=== PATIENT | male | born 1975 | race African-American/Black ===

== ENCOUNTER 2018-01-18 21:25 | Emergency (ER) | payer SELFPAY ==
--- NOTE | 2018-01-18 21:48 | EDM.PDOC ---
ED HPI GENERAL MEDICAL PROBLEM - General Chief Complaint: Cardiovascular Problem Stated Complaint: BLOOD PRESURE Time Seen by Provider: 01/18/18 21:43 - History of Present Illness INITIAL COMMENTS - FREE TEXT/NARRATIVE: HISTORY AND PHYSICAL: History of present illness: Patient's 42-year-old black male who presents from the nursing home for medical screening exam he has no complaints his reported blood pressure 170/130 nursing home he denies history of hypertension or any other concern on arrival here his blood pressure 150/100 and he remains without complaints Review of systems: As per history of present illness and below otherwise all systems reviewed and negative. Past medical history: As per history of present illness and as reviewed below otherwise noncontributory. Surgical history: As per history of present illness and as reviewed below otherwise noncontributory. Social history: No reported history of drug or alcohol abuse. Family history: As per history of present illness and as reviewed below otherwise noncontributory. Physical exam: HEENT: Atraumatic, normocephalic, pupils reactive, negative for conjunctival pallor or scleral icterus, mucous membranes moist, throat clear, neck supple, nontender, trachea midline. Lungs: Clear to auscultation, breath sounds equal bilaterally, chest nontender. Heart: S1S2, regular, negative for clicks, rubs, or JVD. Abdomen: Soft, nondistended, nontender. Negative for masses or hepatosplenomegaly. Negative for costovertebral tenderness. Pelvis: Stable nontender. Genitourinary: Deferred. Rectal: Deferred. Extremities: Atraumatic, negative for cords or calf pain. Neurovascular unremarkable. Neuro: Awake, alert, oriented. Cranial nerves II through XII unremarkable. Cerebellum unremarkable. Motor and sensory unremarkable throughout. Exam nonfocal. Diagnostics: None Therapeutics: None Impression: #1 medical screening exam #2 medically clear for incarceration Definitive disposition and diagnosis as appropriate pending reevaluation and review of above. - Related Data Allergies Allergy/AdvReac Type Severity Reaction Status Date / Time No Known Allergies Allergy Verified 01/18/18 21:44 Home Meds: Home Meds Latanoprost 1 drop OP BEDTIME 01/18/18 [History] Rifampin [Rifadin] 2 tab PO DAILY 01/18/18 [History] ED ROS GENERAL - Review of Systems Review Of Systems: ROS reveals no pertinent complaints other than HPI. ED EXAM, GENERAL - Physical Exam Exam: See Below (Dictation) Departure - Departure Time of Disposition: 21:47 Disposition: Home, Self-Care 01 Condition: Good Clinical Impression: Medical clearance for incarceration, Encounter for medical screening examination Referrals: PCP,None [Primary Care Provider] - Additional Instructions: The following information is given to patients seen in the emergency department who are being discharged to home. This information is to outline your options for follow-up care. We provide all patients seen in our emergency department with a follow-up referral. The need for follow-up, as well as the timing and circumstances, are variable depending upon the specifics of your emergency department visit. If you don't have a primary care physician on staff, we will provide you with a referral. We always advise you to contact your personal physician following an emergency department visit to inform them of the circumstance of the visit and for follow-up with them and/or the need for any referrals to a consulting specialist. The emergency department will also refer you to a specialist when appropriate. This referral assures that you have the opportunity for followup care with a specialist. All of these measure are taken in an effort to provide you with optimal care, which includes your followup. Under all circumstances we always encourage you to contact your private physician who remains a resource for coordinating your care. When calling for followup care, please make the office aware that this follow-up is from your recent emergency room visit. If for any reason you are refused follow-up, please contact the [facility] emergency department at and asked to speak to the emergency department charge nurse. Follow-up primary medical doctor as needed as discussed return as needed as discussed
== END 2018-01-18 22:00 | disposition home or self-care (01) ==
LOC: MW.ED 21:25
DX: Z01.30 Encounter for examination of blood pressure without abnormal findings (principal)
CPT/HCPCS: 99282; 99283

== ENCOUNTER 2018-08-04 22:45 | Observation (INO) | payer MEDICAID, OTHER ==
[2018-08-04] MEDS ORDERED: Sodium Chloride 0.9% 2.5 ML Syringe FLUSH PRN (23:15)
[2018-08-04] MEDS ORDERED: Sodium Chloride 0.9% 10 ML Syringe FLUSH PRN (23:15)
[2018-08-04] MEDS ORDERED: Sodium Chloride 0.9% 1,000 ML IV ONE (23:16)
[2018-08-04] MEDS ORDERED: Ondansetron 4 MG/2 ML SDV IVPUSH ONE (23:16)
[2018-08-04] MEDS ORDERED: Piperacillin/Tazobactam 4.5 GM in Sodium Chloride 0.9% 100 ML IV ONE (23:16)
[2018-08-04] MEDS ORDERED: HYDROmorphone 1 MG/ML Syringe IVPUSH ONE (23:16)
--- NOTE | 2018-08-04 23:20 | EDM.PDOC ---
ED HPI GENERAL MEDICAL PROBLEM - General Chief Complaint: Skin Complaint Stated Complaint: PT IS CONSIPATED Time Seen by Provider: 08/04/18 23:09 - History of Present Illness INITIAL COMMENTS - FREE TEXT/NARRATIVE: HISTORY AND PHYSICAL: History of present illness: The patient is a 48-year-old male who is incarcerated and is here with officer for complaints of 1-1/2-2 weeks of swelling and abscess to his left butt cheek that seems to be getting worse gradually. He says that today he was unable to have a bowel movement because there was somewhat pain and he has been having difficulty urinating because of the pressure and discomfort of the stool and not being able to have a bowel movement. He says he only alerted the nurse to this problem as he thought it was going to "bust and take care of itself". He's not had fevers chills nausea or vomiting but says he feels like he is retaining urine because he cannot and thus cannot pass his urine. He has had no nausea or vomiting. He says he is having difficulty sitting because of the extreme discomfort in the left butt cheek Review of systems: As per history of present illness and below otherwise all systems reviewed and negative. Past medical history: As per history of present illness and as reviewed below otherwise noncontributory. Surgical history: As per history of present illness and as reviewed below otherwise noncontributory. Social history: No reported history of drug or alcohol abuse. Family history: As per history of present illness and as reviewed below otherwise noncontributory. Physical exam: HEENT: Atraumatic, normocephalic, negative for conjunctival pallor or scleral icterus, mucous membranes moist, throat clear, neck supple, nontender, trachea midline. Lungs: Clear to auscultation, breath sounds equal bilaterally, chest nontender. Heart: S1S2, regular, negative for clicks, rubs, or JVD. No overt murmurs Abdomen: Soft, nondistended, nontender. Negative for masses or hepatosplenomegaly. Negative for costovertebral tenderness. Pelvis: Stable nontender. Genitourinary: Deferred. Rectal: Deferred as patient was barely able to tolerate me palpating the extent of the abscess a digital exam of the perianal area was not able to be performed Extremities: Atraumatic, negative for cords or calf pain. Neurovascular unremarkable. Neuro: Awake, alert, oriented. Cranial nerves II through XII unremarkable. Cerebellum unremarkable. Motor and sensory unremarkable throughout. Exam nonfocal. At the left buttock cheek there is at minimum an 18 x 20 cm area of abscess which is fluctuant tender or warm and somewhat ill-defined. It does extend to the anus but I cannot appreciate any anal involvement due to patient's inability to even tolerate minimal palpation. There is not appear to be any extension to the perineal area or the scrotum and there is no crepitus appreciated Diagnostics: Bladder scan CBC CMP INR UA lactic acid blood cultures CT scan of the pelvis Therapeutics: IV IV fluids Dilaudid Zosyn Zofran morphine Patient had told me and nursing that he did not feel like he was voiding very well all day and he was concerned about urinary retention. He says that there is somewhat pain down there he doesn't feel like he can pass his urine. A bladder scan was performed which revealed 6 20 mL of retained urine and I offered the patient a Pereyra catheter but he chose to try to free void. He was able to pass 5 25 mL of urine with a free void so I will hold off Pereyra placement. 0130: Case was discussed with Dr. Rosenberg and the patient will be admitted as an observation to go to the operating room in the morning. Patient is aware of this care plan Impression: Left buttock cellulitis with abscess/necrotic mass Definitive disposition and diagnosis as appropriate pending reevaluation and review of above left gluteal area Pain Score (Numeric/FACES): 6 - Related Data Allergies Allergy/AdvReac Type Severity Reaction Status Date / Time No Known Allergies Allergy Verified 08/04/18 22:59 Home Meds: Home Meds Latanoprost 1 drop OP BEDTIME 01/18/18 [History] Blood Pressure Meds 08/04/18 [History] Past Medical History HEENT History: Reports: Glaucoma Cardiovascular History: Reports: Hypertension Respiratory History: Reports: None Gastrointestinal History: Reports: None Genitourinary History: Reports: None Musculoskeletal History: Reports: None Neurological History: Reports: None Psychiatric History: Reports: None Endocrine/Metabolic History: Reports: None Hematologic History: Reports: None Immunologic History: Reports: None Dermatologic History: Reports: None - Infectious Disease History Infectious Disease History: Reports: None - Past Surgical History Head Surgeries/Procedures: Reports: None Social & Family History - Family History Family Medical History: Noncontributory - Tobacco Use Smoking Status *Q: Former Smoker Used Tobacco, but Quit: No - Caffeine Use Caffeine Use: Reports: Coffee - Recreational Drug Use Recreational Drug Use: No ED ROS GENERAL - Review of Systems Review Of Systems: ROS reveals no pertinent complaints other than HPI. ED EXAM, SKIN/RASH Exam: See Below (See dictation) Course - Vital Signs Last Recorded V/S: Last Vital Signs Temp 36.2 C 08/05/18 01:31 Pulse 71 08/05/18 01:31 Resp 18 08/04/18 23:00 BP 102/62 08/05/18 01:31 Pulse Ox 94 L 08/05/18 01:31 - Orders/Labs/Meds Orders: Active Orders 24 hr Category Date Time Status Patient Status [ADT] Stat ADT 08/05/18 01:36 Ordered Bladder Scan [RC] ASDIRECTED Care 08/04/18 23:15 Active CULTURE BLOOD [BC] Stat Lab 08/04/18 23:20 Received CULTURE BLOOD [BC] Stat Lab 08/04/18 23:40 Received Sodium Chloride 0.9% [Saline Flush] Med 08/04/18 23:15 Active 10 ml FLUSH ASDIRECTED PRN Sodium Chloride 0.9% [Saline Flush] Med 08/04/18 23:15 Active 2.5 ml FLUSH ASDIRECTED PRN Blood Culture x2 Reflex Set [OM.PC] Stat Oth 08/04/18 23:16 Ordered Saline Lock Insert [OM.PC] Stat Oth 08/04/18 23:14 Ordered Medication Orders Sodium Chloride (Saline Flush) 10 ml FLUSH ASDIRECTED PRN PRN Reason: Keep Vein Open Sodium Chloride (Saline Flush) 2.5 ml FLUSH ASDIRECTED PRN PRN Reason: Keep Vein Open Labs: Laboratory Tests 08/04/18 08/04/18 08/04/18 Range/Units 23:20 23:20 23:20 WBC 10.44 (4.0-11.0) K/uL RBC 5.01 (4.50-5.90) M/uL Hgb 15.7 (13.0-17.0) g/dL Hct 43.0 (38.0-50.0) % MCV 85.8 (80.0-98.0) fL MCH 31.3 (27.0-32.0) pg MCHC 36.5 (31.0-37.0) g/dL RDW Std Deviation 39.4 (28.0-62.0) fl RDW Coeff of Yung 13 (11.0-15.0) % Plt Count 300 (150-400) K/uL MPV 10.70 (7.40-12.00) fL Neut % (Auto) 70.5 (48.0-80.0) % Lymph % (Auto) 19.9 (16.0-40.0) % [place] % (Auto) 9.3 (0.0-15.0) % Eos % (Auto) 0.2 (0.0-7.0) % Baso % (Auto) 0.1 (0.0-1.5) % Neut # (Auto) 7.4 H (1.4-5.7) K/uL Lymph # (Auto) 2.1 (0.6-2.4) K/uL [place] # (Auto) 1.0 H (0.0-0.8) K/uL Eos # (Auto) 0.0 (0.0-0.7) K/uL Baso # (Auto) 0.0 (0.0-0.1) K/uL Nucleated RBC % 0.0 /100WBC Nucleated RBCs # 0 K/uL INR 1.03 Lactate (0.20-2.00) mmol/L Sodium 137 (136-148) mmol/L Potassium 3.5 (3.5-5.1) mmol/L Chloride 97 L (98-107) mmol/L Carbon Dioxide 29.9 (21.0-32.0) mmol/L BUN 19 H (7.0-18.0) mg/dL Creatinine 1.4 H (0.8-1.3) mg/dL Est Cr Clr Drug Dosing 65.82 mL/min Estimated GFR (MDRD) > 60.0 ml/min Glucose 126 H (74-106) mg/dL Calcium 9.6 (8.5-10.1) mg/dL Total Bilirubin 0.5 (0.2-1.0) mg/dL AST 22 (15-37) IU/L ALT 32 (14-63) IU/L Alkaline Phosphatase 81 (46-116) U/L Total Protein 9.2 H (6.4-8.2) g/dL Albumin 3.5 (3.4-5.0) g/dL Globulin 5.7 H (2.6-4.0) g/dL Albumin/Globulin Ratio 0.6 L (0.9-1.6) Urine Color Urine Appearance Urine pH (5.0-8.0) Ur Specific [place] (1.001-1.035) Urine Protein (NEGATIVE) mg/dL Urine Glucose (UA) (NEGATIVE) mg/dL Urine Ketones (NEGATIVE) mg/dL Urine Occult Blood (NEGATIVE) Urine Nitrite (NEGATIVE) Urine Bilirubin (NEGATIVE) Urine Urobilinogen (<2.0) EU/dL Ur Leukocyte Esterase (NEGATIVE) Urine RBC (0-2/HPF) Urine WBC (0-5/HPF) Ur Epithelial Cells (NONE-FEW) Urine Bacteria (NEGATIVE) Urine Mucus (NONE-MOD) 08/04/18 08/05/18 Range/Units 23:20 00:21 WBC (4.0-11.0) K/uL RBC (4.50-5.90) M/uL Hgb (13.0-17.0) g/dL Hct (38.0-50.0) % MCV (80.0-98.0) fL MCH (27.0-32.0) pg MCHC (31.0-37.0) g/dL RDW Std Deviation (28.0-62.0) fl RDW Coeff of Yung (11.0-15.0) % Plt Count (150-400) K/uL MPV (7.40-12.00) fL Neut % (Auto) (48.0-80.0) % Lymph % (Auto) (16.0-40.0) % [place] % (Auto) (0.0-15.0) % Eos % (Auto) (0.0-7.0) % Baso % (Auto) (0.0-1.5) % Neut # (Auto) (1.4-5.7) K/uL Lymph # (Auto) (0.6-2.4) K/uL [place] # (Auto) (0.0-0.8) K/uL Eos # (Auto) (0.0-0.7) K/uL Baso # (Auto) (0.0-0.1) K/uL Nucleated RBC % /100WBC Nucleated RBCs # K/uL INR Lactate 1.5 (0.20-2.00) mmol/L Sodium (136-148) mmol/L Potassium (3.5-5.1) mmol/L Chloride (98-107) mmol/L Carbon Dioxide (21.0-32.0) mmol/L BUN (7.0-18.0) mg/dL Creatinine (0.8-1.3) mg/dL Est Cr Clr Drug Dosing mL/min Estimated GFR (MDRD) ml/min Glucose (74-106) mg/dL Calcium (8.5-10.1) mg/dL Total Bilirubin (0.2-1.0) mg/dL AST (15-37) IU/L ALT (14-63) IU/L Alkaline Phosphatase (46-116) U/L Total Protein (6.4-8.2) g/dL Albumin (3.4-5.0) g/dL Globulin (2.6-4.0) g/dL Albumin/Globulin Ratio (0.9-1.6) Urine Color DARK YELLOW Urine Appearance CLEAR Urine pH 6.5 (5.0-8.0) Ur Specific [place] 1.015 (1.001-1.035) Urine Protein TRACE H (NEGATIVE) mg/dL Urine Glucose (UA) NEGATIVE (NEGATIVE) mg/dL Urine Ketones NEGATIVE (NEGATIVE) mg/dL Urine Occult Blood NEGATIVE (NEGATIVE) Urine Nitrite NEGATIVE (NEGATIVE) Urine Bilirubin NEGATIVE (NEGATIVE) Urine Urobilinogen 0.2 (<2.0) EU/dL Ur Leukocyte Esterase NEGATIVE (NEGATIVE) Urine RBC NONE SEEN (0-2/HPF) Urine WBC 0-1 (0-5/HPF) Ur Epithelial Cells RARE (NONE-FEW) Urine Bacteria FEW (NEGATIVE) Urine Mucus LIGHT (NONE-MOD) Meds: Medications Generic Name Dose Route Start Last Admin Trade Name Freq PRN Reason Stop Dose Admin Sodium Chloride 10 ml 08/04/18 23:15 Saline Flush FLUSH ASDIRECTED PRN Keep Vein Open Sodium Chloride 2.5 ml 08/04/18 23:15 Saline Flush FLUSH ASDIRECTED PRN Keep Vein Open Discontinued Medications Generic Name Dose Route Start Last Admin Trade Name Freq PRN Reason Stop Dose Admin Hydromorphone HCl 1 mg 08/04/18 23:16 08/04/18 23:41 Dilaudid IVPUSH 08/04/18 23:17 1 mg ONETIME ONE Administration Piperacillin Sod/Tazobactam 100 mls @ 100 mls/hr 08/04/18 23:16 08/04/18 23: 42 Sod 4.5 gm/ Sodium Chloride IV 08/05/18 00:15 100 mls/hr ONETIME ONE Administration Sodium Chloride 1,000 mls @ 999 mls/hr 08/04/18 23:16 08/04/18 23:42 Normal Saline IV 08/05/18 00:16 999 mls/hr STAT ONE Administration Iopamidol 80 ml 08/05/18 01:06 08/05/18 01:06 Isovue Multipack-370 (76%) IVPUSH 08/05/18 01:07 80 ml ONETIME ONE Administration Morphine Sulfate 4 mg 08/05/18 01:35 Morphine IVPUSH 08/05/18 01:36 ONETIME ONE Ondansetron HCl 4 mg 08/04/18 23:16 08/04/18 23:42 Zofran IVPUSH 08/04/18 23:17 4 mg ONETIME ONE Administration Departure - Departure Time of Disposition: 01:41 Disposition: Refer to Observation Condition: Good Clinical Impression: Abscess Cellulitis Qualifiers: Site of cellulitis: buttock Qualified Code(s): L03.317 - Cellulitis of buttock - Discharge Information Referrals: PCP,None [Primary Care Provider] - Forms: ED Department Discharge - My Orders Last 24 Hours: My Active Orders 08/04/18 23:14 Saline Lock Insert [OM.PC] Stat 08/04/18 23:15 Bladder Scan [RC] ASDIRECTED Sodium Chloride 0.9% [Saline Flush] 10 ml FLUSH ASDIRECTED PRN Sodium Chloride 0.9% [Saline Flush] 2.5 ml FLUSH ASDIRECTED PRN 08/04/18 23:16 Blood Culture x2 Reflex Set [OM.PC] Stat 08/04/18 23:20 CULTURE BLOOD [BC] Stat 08/04/18 23:40 CULTURE BLOOD [BC] Stat 08/05/18 01:36 Patient Status [ADT] Stat - Assessment/Plan Last 24 Hours: My Active Orders 08/04/18 23:14 Saline Lock Insert [OM.PC] Stat 08/04/18 23:15 Bladder Scan [RC] ASDIRECTED Sodium Chloride 0.9% [Saline Flush] 10 ml FLUSH ASDIRECTED PRN Sodium Chloride 0.9% [Saline Flush] 2.5 ml FLUSH ASDIRECTED PRN 08/04/18 23:16 Blood Culture x2 Reflex Set [OM.PC] Stat 08/04/18 23:20 CULTURE BLOOD [BC] Stat 08/04/18 23:40 CULTURE BLOOD [BC] Stat 08/05/18 01:36 Patient Status [ADT] Stat
[2018-08-05 00:01] LABS: CHLORIDE,CL 97 mmol/L (98-107); SODIUM,NA 137 mmol/L (136-148)
[2018-08-05] MEDS ORDERED: Iopamidol 755 MG/ML 500 ML Multipack Bottle IVPUSH ONE (01:06)
--- NOTE | 2018-08-05 01:24 | CT ---
Indication: Left-sided buttock pain Technique: A postcontrast CT scan of the pelvis. 80 mL of Isovue 370 administered. Comparison: None available Findings: There is an 8.2 x 4.1 x 6.3 cm ovoid low-attenuation structure versus collection in the posteromedial left gluteal subcutaneous fat, demonstrating peripheral enhancement as well as areas of internal septal enhancement, with adjacent stranding and edema and overlying cutaneous thickening. There is an ovoid area of fat attenuation underlying the lateral aspect of the right gluteus musculature compatible with a lipoma. Within the pelvis, there is moderate rectal stool load. A normal appendix is seen. The prostate is mildly prominent. There is mild thickening of the bladder wall versus incomplete distention. There are borderline left pelvic sidewall lymph nodes and a shotty left inguinal lymph node. Small fat containing inguinal hernias are noted. No suspicious osseous abnormalities are seen. Impression: An 8.2 cm low density lesion versus collection in the posteromedial left gluteal subcutaneous fat, demonstrating peripheral and septal enhancement, which could represent an abscess or a necrotic mass. This could be further evaluated with sonography, as well as correlation with aspiration or biopsy, as clinically indicated. Mild bladder wall thickening versus incomplete distention. Correlate with urinalysis. A mildly prominent prostate. Moderate rectal stool load. Dictated by Ceferino Davies MD @ 08/05/2018 1:22:12 AM Please note that all CT scans at this facility use dose modulation, iterative reconstruction, and/or weight-based dosing when appropriate to reduce radiation dose to as low as reasonably achievable. Dictated by: Ceferino Davies MD @ 08/05/2018 01:22:19 (Electronically Signed)
[2018-08-05] MEDS ORDERED: Morphine 2 MG/ML Syringe IVPUSH ONE (01:35)
[2018-08-05] MEDS: Lactated Ringers 1,000 ML IV SCH ×2 (01:46→08:20)
[2018-08-05] MEDS: Morphine 2 MG/ML Syringe IVPUSH PRN ×4 (03:39→11:57)
--- NOTE | 2018-08-05 08:23 | PCM.HP ---
H&P History of Present Illness - General Date of Service: 08/05/18 Admit Problem/Dx: Admission Diagnosis/Problem Admission Diagnosis/Problem Abscess 43 y/o gentleman with a 2 weeks history of a left buttock abscess. Had one in a similar location several years ago. Pain has been getting worse. No BM for last 10 days. Denies fever or chills. Source of Information: Patient History Limitations: Reports: No Limitations - History of Present Illness Duration of Symptoms: Reports: Week(s):, Constant, Getting Worse, Heavy Location: Reports: Other (left buttock) Quality: Reports: Pressure, Same as Previous Episode Severity: Severe Improves with: Reports: Rest Worsens with: Reports: Movement Associated Symptoms: Denies: Confusion, Fever/Chills, Nausea/Vomiting left gluteal area Pain Score (Numeric/FACES): 5 - Related Data Allergies/Adverse Reactions: Allergies Allergy/AdvReac Type Severity Reaction Status Date / Time No Known Allergies Allergy Verified 08/04/18 22:59 Home Medications: Home Meds Latanoprost 1 drop OP BEDTIME 01/18/18 [History] Blood Pressure Meds 08/04/18 [History] Past Medical History HEENT History: Reports: Glaucoma Cardiovascular History: Reports: Hypertension Respiratory History: Reports: None Gastrointestinal History: Reports: None Genitourinary History: Reports: None Musculoskeletal History: Reports: None Neurological History: Reports: None Psychiatric History: Reports: None Endocrine/Metabolic History: Reports: None Hematologic History: Reports: None Immunologic History: Reports: None Dermatologic History: Reports: None - Infectious Disease History Infectious Disease History: Reports: None - Past Surgical History Head Surgeries/Procedures: Reports: None Other Dermatological Surgeries/Procedures: left buttock abscess drainage Social & Family History - Family History Family Medical History: Noncontributory - Tobacco Use Smoking Status *Q: Never Smoker Used Tobacco, but Quit: No - Caffeine Use Caffeine Use: Reports: Coffee, Tea - Recreational Drug Use Recreational Drug Use: No H&P Review of Systems - Review of Systems: Review Of Systems: See Below General: Reports: Decreased Appetite. Denies: Fever, Chills HEENT: Reports: No Symptoms Pulmonary: Denies: Shortness of Breath, Wheezing Cardiovascular: Denies: Chest Pain, Palpitations Gastrointestinal: Reports: Constipation, Flatus. Denies: Abdominal Pain, Anorexia, Black Stool, Bloody Stool, Diarrhea, Decreased Appetite, Distension Genitourinary: Reports: Retention. Denies: Dysuria, Frequency, Burning, Pain Musculoskeletal: Reports: No Symptoms Skin: Reports: No Symptoms Psychiatric: Reports: No Symptoms Neurological: Reports: No Symptoms Hematologic/Lymphatic: Reports: No Symptoms Immunologic: Reports: No Symptoms Exam - Exam Exam: See Below - Vital Signs Vital Signs: Last Vital Signs Temp 98.3 F 08/05/18 07:50 Pulse 74 08/05/18 07:50 Resp 18 08/05/18 07:50 BP 105/58 L 08/05/18 07:50 Pulse Ox 95 08/05/18 07:50 Weight: 242 lb 14.4 oz - Exam Quality Assessment: No: Supplemental Oxygen, Central Line/PICC, Urinary Catheter General: Alert, Oriented, Cooperative, Moderate Distress HEENT: Conjunctiva Clear, EACs Clear, EOMI, PERRLA. No: Scleral Icterus Neck: Supple, Trachea Midline Lungs: Clear to Auscultation, Normal Respiratory Effort Cardiovascular: Regular Rate, Regular Rhythm, Normal S1, Normal S2. No: Tachycardia, Systolic Murmur, Diastolic Murmur GI/Abdominal Exam: Normal Bowel Sounds, Soft, Non-Tender (Male) Exam: No Hernia, Normal Inspection Rectal (Males) Exam: Mass (large left buttock abscess) Back Exam: Normal Inspection, Full Range of Motion Extremities: Normal Inspection, Normal Range of Motion, Non-Tender Skin: Warm, Dry, Intact Neurological: Cranial Nerves Intact, Reflexes Equal Bilateral Psychiatric: Alert, Normal Affect, Normal Mood - Patient Data Lab Results Last 24 hrs: Laboratory Results - last 24 hr 08/04/18 08/04/18 08/04/18 Range/Units 23:20 23:20 23:20 WBC 10.44 (4.0-11.0) K/uL RBC 5.01 (4.50-5.90) M/uL Hgb 15.7 (13.0-17.0) g/dL Hct 43.0 (38.0-50.0) % MCV 85.8 (80.0-98.0) fL MCH 31.3 (27.0-32.0) pg MCHC 36.5 (31.0-37.0) g/dL RDW Std Deviation 39.4 (28.0-62.0) fl RDW Coeff of Yung 13 (11.0-15.0) % Plt Count 300 (150-400) K/uL MPV 10.70 (7.40-12.00) fL Neut % (Auto) 70.5 (48.0-80.0) % Lymph % (Auto) 19.9 (16.0-40.0) % [place] % (Auto) 9.3 (0.0-15.0) % Eos % (Auto) 0.2 (0.0-7.0) % Baso % (Auto) 0.1 (0.0-1.5) % Neut # (Auto) 7.4 H (1.4-5.7) K/uL Lymph # (Auto) 2.1 (0.6-2.4) K/uL [place] # (Auto) 1.0 H (0.0-0.8) K/uL Eos # (Auto) 0.0 (0.0-0.7) K/uL Baso # (Auto) 0.0 (0.0-0.1) K/uL Nucleated RBC % 0.0 /100WBC Nucleated RBCs # 0 K/uL INR 1.03 Lactate (0.20-2.00) mmol/L Sodium 137 (136-148) mmol/L Potassium 3.5 (3.5-5.1) mmol/L Chloride 97 L (98-107) mmol/L Carbon Dioxide 29.9 (21.0-32.0) mmol/L BUN 19 H (7.0-18.0) mg/dL Creatinine 1.4 H (0.8-1.3) mg/dL Est Cr Clr Drug Dosing 65.82 mL/min Estimated GFR (MDRD) > 60.0 ml/min Glucose 126 H (74-106) mg/dL Calcium 9.6 (8.5-10.1) mg/dL Total Bilirubin 0.5 (0.2-1.0) mg/dL AST 22 (15-37) IU/L ALT 32 (14-63) IU/L Alkaline Phosphatase 81 (46-116) U/L Total Protein 9.2 H (6.4-8.2) g/dL Albumin 3.5 (3.4-5.0) g/dL Globulin 5.7 H (2.6-4.0) g/dL Albumin/Globulin Ratio 0.6 L (0.9-1.6) Urine Color Urine Appearance Urine pH (5.0-8.0) Ur Specific [place] (1.001-1.035) Urine Protein (NEGATIVE) mg/dL Urine Glucose (UA) (NEGATIVE) mg/dL Urine Ketones (NEGATIVE) mg/dL Urine Occult Blood (NEGATIVE) Urine Nitrite (NEGATIVE) Urine Bilirubin (NEGATIVE) Urine Urobilinogen (<2.0) EU/dL Ur Leukocyte Esterase (NEGATIVE) Urine RBC (0-2/HPF) Urine WBC (0-5/HPF) Ur Epithelial Cells (NONE-FEW) Urine Bacteria (NEGATIVE) Urine Mucus (NONE-MOD) 08/04/18 08/05/18 Range/Units 23:20 00:21 WBC (4.0-11.0) K/uL RBC (4.50-5.90) M/uL Hgb (13.0-17.0) g/dL Hct (38.0-50.0) % MCV (80.0-98.0) fL MCH (27.0-32.0) pg MCHC (31.0-37.0) g/dL RDW Std Deviation (28.0-62.0) fl RDW Coeff of Yung (11.0-15.0) % Plt Count (150-400) K/uL MPV (7.40-12.00) fL Neut % (Auto) (48.0-80.0) % Lymph % (Auto) (16.0-40.0) % [place] % (Auto) (0.0-15.0) % Eos % (Auto) (0.0-7.0) % Baso % (Auto) (0.0-1.5) % Neut # (Auto) (1.4-5.7) K/uL Lymph # (Auto) (0.6-2.4) K/uL [place] # (Auto) (0.0-0.8) K/uL Eos # (Auto) (0.0-0.7) K/uL Baso # (Auto) (0.0-0.1) K/uL Nucleated RBC % /100WBC Nucleated RBCs # K/uL INR Lactate 1.5 (0.20-2.00) mmol/L Sodium (136-148) mmol/L Potassium (3.5-5.1) mmol/L Chloride (98-107) mmol/L Carbon Dioxide (21.0-32.0) mmol/L BUN (7.0-18.0) mg/dL Creatinine (0.8-1.3) mg/dL Est Cr Clr Drug Dosing mL/min Estimated GFR (MDRD) ml/min Glucose (74-106) mg/dL Calcium (8.5-10.1) mg/dL Total Bilirubin (0.2-1.0) mg/dL AST (15-37) IU/L ALT (14-63) IU/L Alkaline Phosphatase (46-116) U/L Total Protein (6.4-8.2) g/dL Albumin (3.4-5.0) g/dL Globulin (2.6-4.0) g/dL Albumin/Globulin Ratio (0.9-1.6) Urine Color DARK YELLOW Urine Appearance CLEAR Urine pH 6.5 (5.0-8.0) Ur Specific [place] 1.015 (1.001-1.035) Urine Protein TRACE H (NEGATIVE) mg/dL Urine Glucose (UA) NEGATIVE (NEGATIVE) mg/dL Urine Ketones NEGATIVE (NEGATIVE) mg/dL Urine Occult Blood NEGATIVE (NEGATIVE) Urine Nitrite NEGATIVE (NEGATIVE) Urine Bilirubin NEGATIVE (NEGATIVE) Urine Urobilinogen 0.2 (<2.0) EU/dL Ur Leukocyte Esterase NEGATIVE (NEGATIVE) Urine RBC NONE SEEN (0-2/HPF) Urine WBC 0-1 (0-5/HPF) Ur Epithelial Cells RARE (NONE-FEW) Urine Bacteria FEW (NEGATIVE) Urine Mucus LIGHT (NONE-MOD) Result Diagrams: 08/04/18 23:20 08/04/18 23:20 - Problem List (1) Abscess of buttock, left SNOMED Code(s): 25777605 ICD Code: L02.31 - CUTANEOUS ABSCESS OF BUTTOCK Status: Acute Priority: High Current Visit: Yes (2) Hypertension SNOMED Code(s): 80496563 ICD Code: I10 - ESSENTIAL (PRIMARY) HYPERTENSION Status: Acute Priority: Low Current Visit: No Problem List Initiated/Reviewed/Updated: Yes Orders Last 24hrs: Active Orders 24 hr Category Date Time Status Patient Status [ADT] Stat ADT 08/05/18 01:36 Active Bladder Scan [RC] ASDIRECTED Care 08/04/18 23:15 Active Nothing Per Oral Diet [DIET] Diet 08/05/18 Breakfast Active CULTURE BLOOD [BC] Stat Lab 08/04/18 23:20 Received CULTURE BLOOD [BC] Stat Lab 08/04/18 23:40 Received Lactated Ringers [Ringers, Lactated] 1,000 ml Med 08/05/18 01:45 Active IV ASDIRECTED Morphine Med 08/05/18 01:51 Active 1 - 5 mg IVPUSH Q1H PRN Piperacillin/Tazobactam [Piperacil-Tazobact] 4.5 gm Med 08/05/18 08:30 Ordered Sodium Chloride 0.9% [Normal Saline] 100 ml IV Q8H Sodium Chloride 0.9% [Saline Flush] Med 08/04/18 23:15 Active 10 ml FLUSH ASDIRECTED PRN Sodium Chloride 0.9% [Saline Flush] Med 08/04/18 23:15 Active 2.5 ml FLUSH ASDIRECTED PRN Blood Culture x2 Reflex Set [OM.PC] Stat Oth 08/04/18 23:16 Ordered Saline Lock Insert [OM.PC] Stat Oth 08/04/18 23:14 Ordered Code Status [Resuscitation Status] Routine Resus Stat 08/05/18 01:53 Ordered Medication Orders Lactated Ringer's (Ringers, Lactated) 1,000 mls @ 150 mls/hr IV ASDIRECTED ANDREAS Last Admin: 08/05/18 01:46 Dose: 150 mls/hr Morphine Sulfate (Morphine) 1 - 5 mg IVPUSH Q1H PRN PRN Reason: Pain Last Admin: 08/05/18 08:16 Dose: 2 mg Admin: 08/05/18 03:39 Dose: 4 mg Sodium Chloride (Saline Flush) 10 ml FLUSH ASDIRECTED PRN PRN Reason: Keep Vein Open Sodium Chloride (Saline Flush) 2.5 ml FLUSH ASDIRECTED PRN PRN Reason: Keep Vein Open Assessment/Plan Comment:: Incision and drainage of the left buttock abscess. The operative procedure, the risks, including, but not limited to, bleeding, infection, and recurrence of the abscess been reviewed with the patient who voices understanding, offers no questions and wishes to proceed.
[2018-08-05] MEDS: Piperacillin/Tazobactam 4.5 GM in Sodium Chloride 0.9% 100 ML IV SCH ×2 (08:31→16:39)
--- NOTE | 2018-08-05 09:02 | PCM.PREANE ---
Preanesthetic Assessment - Anesthesia/Transfusion/Family Hx Anesthesia History: Prior Anesthesia Without Reaction Family History of Anesthesia Reaction: No Transfusion History: No Prior Transfusion(s) - Review of Systems General: No Symptoms Pulmonary: No Symptoms Cardiovascular: No Symptoms Neurological: No Symptoms Other: Reports: None - Physical Assessment NPO Status Date: 08/04/18 O2 Sat by Pulse Oximetry: 95 Respiratory Rate: 16 Vital Signs: Last Vital Signs Temp 98.3 F 08/05/18 08:00 Pulse 74 08/05/18 08:00 Resp 16 08/05/18 08:00 BP 105/58 L 08/05/18 08:00 Pulse Ox 95 08/05/18 08:00 Height: 5 ft 11 in Weight: 110.178 kg ASA Class: 2 Mental Status: Alert & Oriented x3 Airway Class: Mallampati = 2 Dentition: Reports: Normal Dentition ROM/Head Extension: Full Lungs: Clear to Auscultation, Normal Respiratory Effort Cardiovascular: Regular Rate, Regular Rhythm - Lab Values: Laboratory Last Values WBC 10.44 K/uL (4.0-11.0) 08/04/18 23:20 RBC 5.01 M/uL (4.50-5.90) 08/04/18 23:20 Hgb 15.7 g/dL (13.0-17.0) 08/04/18 23:20 Hct 43.0 % (38.0-50.0) 08/04/18 23:20 MCV 85.8 fL (80.0-98.0) 08/04/18 23:20 MCH 31.3 pg (27.0-32.0) 08/04/18 23:20 MCHC 36.5 g/dL (31.0-37.0) 08/04/18 23:20 RDW Std Deviation 39.4 fl (28.0-62.0) 08/04/18 23:20 RDW Coeff of Yung 13 % (11.0-15.0) 08/04/18 23:20 Plt Count 300 K/uL (150-400) 08/04/18 23:20 MPV 10.70 fL (7.40-12.00) 08/04/18 23:20 Neut % (Auto) 70.5 % (48.0-80.0) 08/04/18 23:20 Lymph % (Auto) 19.9 % (16.0-40.0) 08/04/18 23:20 [place] % (Auto) 9.3 % (0.0-15.0) 08/04/18 23:20 Eos % (Auto) 0.2 % (0.0-7.0) 08/04/18 23:20 Baso % (Auto) 0.1 % (0.0-1.5) 08/04/18 23:20 Neut # (Auto) 7.4 K/uL (1.4-5.7) H 08/04/18 23:20 Lymph # (Auto) 2.1 K/uL (0.6-2.4) 08/04/18 23:20 [place] # (Auto) 1.0 K/uL (0.0-0.8) H 08/04/18 23:20 Eos # (Auto) 0.0 K/uL (0.0-0.7) 08/04/18 23:20 Baso # (Auto) 0.0 K/uL (0.0-0.1) 08/04/18 23:20 Nucleated RBC % 0.0 /100WBC 08/04/18 23:20 Nucleated RBCs # 0 K/uL 08/04/18 23:20 INR 1.03 08/04/18 23:20 Lactate 1.5 mmol/L (0.20-2.00) 08/04/18 23:20 Sodium 137 mmol/L (136-148) 08/04/18 23:20 Potassium 3.5 mmol/L (3.5-5.1) 08/04/18 23:20 Chloride 97 mmol/L (98-107) L 08/04/18 23:20 Carbon Dioxide 29.9 mmol/L (21.0-32.0) 08/04/18 23:20 BUN 19 mg/dL (7.0-18.0) H 08/04/18 23:20 Creatinine 1.4 mg/dL (0.8-1.3) H 08/04/18 23:20 Est Cr Clr Drug Dosing 65.82 mL/min 08/04/18 23:20 Estimated GFR (MDRD) > 60.0 ml/min 08/04/18 23:20 Glucose 126 mg/dL (74-106) H 08/04/18 23:20 Calcium 9.6 mg/dL (8.5-10.1) 08/04/18 23:20 Total Bilirubin 0.5 mg/dL (0.2-1.0) 08/04/18 23:20 AST 22 IU/L (15-37) 08/04/18 23:20 ALT 32 IU/L (14-63) 08/04/18 23:20 Alkaline Phosphatase 81 U/L (46-116) 08/04/18 23:20 Total Protein 9.2 g/dL (6.4-8.2) H 08/04/18 23:20 Albumin 3.5 g/dL (3.4-5.0) 08/04/18 23:20 Globulin 5.7 g/dL (2.6-4.0) H 08/04/18 23:20 Albumin/Globulin Ratio 0.6 (0.9-1.6) L 08/04/18 23:20 Urine Color DARK YELLOW 08/05/18 00:21 Urine Appearance CLEAR 08/05/18 00: Urine pH 6.5 (5.0-8.0) 08/05/18 00:21 Ur Specific [place] 1.015 (1.001-1.035) 08/05/18 00: Urine Protein TRACE mg/dL (NEGATIVE) H 08/05/18 00: Urine Glucose (UA) NEGATIVE mg/dL (NEGATIVE) 08/05/18 00: Urine Ketones NEGATIVE mg/dL (NEGATIVE) 08/05/18 00: Urine Occult Blood NEGATIVE (NEGATIVE) 08/05/18 00: Urine Nitrite NEGATIVE (NEGATIVE) 08/05/18 00: Urine Bilirubin NEGATIVE (NEGATIVE) 08/05/18 00: Urine Urobilinogen 0.2 EU/dL (<2.0) 08/05/18 00: Ur Leukocyte Esterase NEGATIVE (NEGATIVE) 08/05/18 00: Urine RBC NONE SEEN (0-2/HPF) 08/05/18 00: Urine WBC 0-1 (0-5/HPF) 08/05/18 00: Ur Epithelial Cells RARE (NONE-FEW) 08/05/18 00: Urine Bacteria FEW (NEGATIVE) 08/05/18 00: Urine Mucus LIGHT (NONE-MOD) 08/05/18 00:21 - Allergies Allergies/Adverse Reactions: Allergies Allergy/AdvReac Type Severity Reaction Status Date / Time No Known Allergies Allergy Verified 08/04/18 22:59 - Blood Blood Available: No - Anesthesia Plan Pre-Op Medication Ordered: None - Acknowledgements Anesthesia Type Planned: General Anesthesia Pt an Appropriate Candidate for the Planned Anesthesia: Yes Alternatives and Risks of Anesthesia Discussed w Pt/Guardian: Yes Pt/Guardian Understands and Agrees with Anesthesia Plan: Yes Additional Comments: PMH: htn PLAN: get, prone PreAnesthesia Questionnaire HEENT History: Reports: Glaucoma Cardiovascular History: Reports: Hypertension Respiratory History: Reports: None Gastrointestinal History: Reports: None Genitourinary History: Reports: None Musculoskeletal History: Reports: None Neurological History: Reports: None Psychiatric History: Reports: None Endocrine/Metabolic History: Reports: None Hematologic History: Reports: None Immunologic History: Reports: None Dermatologic History: Reports: None - Infectious Disease History Infectious Disease History: Reports: None - Past Surgical History Head Surgeries/Procedures: Reports: None Other Dermatological Surgeries/Procedures: left buttock abscess drainage - SUBSTANCE USE Smoking Status *Q: Never Smoker Recreational Drug Use History: No - HOME MEDS Home Medications: Home Meds Latanoprost 1 drop OP BEDTIME 01/18/18 [History] Blood Pressure Meds 08/04/18 [History] - CURRENT (IN HOUSE) MEDS Current Meds: Current Medications Lactated Ringer's (Ringers, Lactated) 1,000 mls @ 150 mls/hr IV ASDIRECTED [facility] Last Admin: 08/05/18 08:20 Dose: 150 mls/hr Piperacillin Sod/Tazobactam (Sod 4.5 gm/ Sodium Chloride) 100 mls @ 100 mls/hr IV Q8H [facility] Last Admin: 08/05/18 08:31 Dose: 100 mls/hr Morphine Sulfate (Morphine) 1 - 5 mg IVPUSH Q1H PRN PRN Reason: Pain Last Admin: 08/05/18 08:16 Dose: 2 mg Sodium Chloride (Saline Flush) 10 ml FLUSH ASDIRECTED PRN PRN Reason: Keep Vein Open Sodium Chloride (Saline Flush) 2.5 ml FLUSH ASDIRECTED PRN PRN Reason: Keep Vein Open Discontinued Medications Hydromorphone HCl (Dilaudid) 1 mg IVPUSH ONETIME ONE Stop: 08/04/18 23:17 Last Admin: 08/04/18 23:41 Dose: 1 mg Piperacillin Sod/Tazobactam (Sod 4.5 gm/ Sodium Chloride) 100 mls @ 100 mls/hr IV ONETIME ONE Stop: 08/05/18 00:15 Last Admin: 08/04/18 23:42 Dose: 100 mls/hr Sodium Chloride (Normal Saline) 1,000 mls @ 999 mls/hr IV STAT ONE Stop: 08/05/18 00:16 Last Admin: 08/04/18 23:42 Dose: 999 mls/hr Iopamidol (Isovue Multipack-370 (76%)) 80 ml IVPUSH ONETIME ONE Stop: 08/05/18 01:07 Last Admin: 08/05/18 01:06 Dose: 80 ml Morphine Sulfate (Morphine) 4 mg IVPUSH ONETIME ONE Stop: 08/05/18 01:36 Last Admin: 08/05/18 01:46 Dose: 4 mg Ondansetron HCl (Zofran) 4 mg IVPUSH ONETIME ONE Stop: 08/04/18 23:17 Last Admin: 08/04/18 23:42 Dose: 4 mg
[2018-08-05] MEDS ORDERED: Midazolam 1 MG/ML 2 ML SDV ONE (12:27)
[2018-08-05] MEDS ORDERED: Rocuronium 100 MG/10 ML Syringe ONE (12:27)
[2018-08-05] MEDS ORDERED: Propofol 200 MG/20 ML SDV ONE (12:27)
[2018-08-05] MEDS ORDERED: Lidocaine 2% 5 ML SDV ONE (12:27)
[2018-08-05] MEDS ORDERED: Ondansetron 4 MG/2 ML SDV ONE (12:27)
[2018-08-05] MEDS ORDERED: fentaNYL 250 MCG/5 ML SDV ONE (12:28)
[2018-08-05] MEDS ORDERED: ceFAZolin 1 GM Vial ONE (12:43)
[2018-08-05] MEDS ORDERED: Bupivacaine 0.5% 10 ML SDV ONE (12:43)
[2018-08-05] MEDS ORDERED: Glycopyrrolate 0.2 MG/ML SDV ONE ×2 (13:14→13:19)
[2018-08-05] MEDS ORDERED: 50% Dextrose in Water 50 ML Syringe IVPUSH PRN (13:25)
[2018-08-05] MEDS ORDERED: fentaNYL 100 MCG/2 ML SDV IVPUSH PRN (13:25)
[2018-08-05] MEDS ORDERED: Naloxone 0.4 MG/ML Syringe IVPUSH PRN (13:25)
[2018-08-05] MEDS ORDERED: Atropine 0.1 MG/ML 10 ML Syringe IVPUSH PRN ×2 (13:25)
[2018-08-05] MEDS ORDERED: Albuterol 0.083% 2.5 MG/3 ML Neb Soln NEB PRN (13:25)
[2018-08-05] MEDS ORDERED: EPINEPHrine 1:10,000 1 MG/10 ML Syringe IVPUSH PRN (13:25)
[2018-08-05] MEDS ORDERED: Morphine 10 MG/ML Syringe IVPUSH PRN (13:53)
[2018-08-05] MEDS ORDERED: Acetaminophen 325 MG Tab PO PRN (13:53)
[2018-08-05] MEDS ORDERED: Ondansetron 4 MG/2 ML SDV IVPUSH PRN (13:53)
[2018-08-05] MEDS ORDERED: Acetaminophen/HYDROcodone 325-5 MG Tab PO PRN (13:53)
--- NOTE | 2018-08-05 13:59 | PCM.OPNOTE ---
- General Post-Op/Procedure Note Date of Surgery/Procedure: 08/05/18 Operative Procedure(s): Incision and drainage left perianal/buttock abscess Pre Op Diagnosis: Left buttock/perianal abscess Post-Op Diagnosis: Same Anesthesia Technique: General ET Tube (ASA IIE) Primary Surgeon: Juan Rosenberg Fluid Replacement, Intraop: 500 EBL in mLs: 100 Surgical Drain/Tube Type: Grisel Condition: Fair Free Text/Narrative:: Intake & Output 08/05/18 08/05/18 08/05/18 03:59 11:59 19:59 Intake Total 1100 Output Total 0 Balance 1100 DICTATION 785092 CPT CODE 79773
[2018-08-05] MEDS ORDERED: Lactated Ringers 1,000 ML IV SCH (14:00)
--- NOTE | 2018-08-05 14:22 | PCM.POSTAN ---
POST ANESTHESIA ASSESSMENT - MENTAL STATUS Mental Status: Alert, Oriented - RESPIRATORY Respiratory Status: Respiratory Rate WNL, Airway Patent, O2 Saturation Stable - CARDIOVASCULAR CV Status: Pulse Rate WNL, Blood Pressure Stable - GASTROINTESTINAL GI Status: No Symptoms - PAIN Pain Score: 0 - POST OP HYDRATION Hydration Status: Adequate & Stable - OBSERVATIONS Free Text/Narrative:: Pt denies any pain; states he is "sore". No nausea or vomiting at this time. Stable for tx to phase II recovery.
--- NOTE | 2018-08-05 14:52 | PCM48HPAN ---
Post Anesthesia Note - EVALUATION WITHIN 48HRS OF ANESTHETIC Vital Signs in Normal Range: Yes Patient Participated in Evaluation: Yes Respiratory Function Stable: Yes Airway Patent: Yes Cardiovascular Function Stable: Yes Hydration Status Stable: Yes Pain Control Satisfactory: Yes Nausea and Vomiting Control Satisfactory: Yes Mental Status Recovered: Yes Resp Rate: 12
--- NOTE | 2018-08-05 20:06 | OR ---
SURGEON: Juan Rosenberg M.D. DATE OF PROCEDURE: 08/05/2018 OPERATION PERFORMED: Incision and drainage of large left buttock abscess. ANESTHESIA: General endotracheal. ASA CLASSIFICATION: 2E. PREOPERATIVE DIAGNOSIS: Left buttock abscess. POSTOPERATIVE DIAGNOSIS: Left buttock abscess. ESTIMATED BLOOD LOSS: 100 mL. INTRAOPERATIVE FLUID REPLACEMENT: 500 mL of crystalloid. DESCRIPTION OF PROCEDURE: The patient was taken to the operating room, kept on the transfer cart in the supine position. Following satisfactory attainment of general endotracheal anesthesia, the patient was placed prone on the operating table with care taken to pad all bony prominences. The buttocks were taped apart. Thigh-high TEDs and sequential compression boots had been placed. The buttocks were prepped with Betadine solution. Sterile drapes were applied. Skin incision was made directly over the mass in the left buttock. There was approximately 100 mL of pus. Aerobic and anaerobic cultures were obtained and sent for culture sensitivity and Gram stain. Hemostasis was obtained with the use of electrocautery. The wound was irrigated with several 100 mL of sterile saline solution. Further cautery was carried out. Avitenbella and was placed into the bed of the wound for further hemostasis. A large [place] drain was placed superiorly and inferiorly and secured with multiple interrupted 2-0 nylon sutures. The wound was then dressed with fluffs and held in place with mesh panties. Sponge, needle, and instrument counts were all correct. The patient was turned back to the supine position on the transfer cart. Following satisfactory emergence from anesthesia, the patient was extubated and taken to recovery room in stable condition. MIKE / LISETTE /[id number]
== END 2018-08-05 18:15 | disposition home or self-care (01) ==
LOC: MW.ED 22:45 → MW.MS 08-05 01:36
PROVIDERS: ADMIT Surgery; ATTEND Surgery
DX: L02.31 Cutaneous abscess of buttock (principal); I10 Essential (primary) hypertension; Z87.891 Personal history of nicotine dependence; Z79.899 Other long term (current) drug therapy
CPT/HCPCS: 36415; 72193; 72193-26; 80053; 81001; 83605; 85025; 85610; 87040; 87070; 87075; 87205; 96365; 96366; 96367; 96375; 96376; 99283; 99285-25; A9270-GY; G0378; J0330; J0690; J1170; J2001; J2250; J2270; J2405; J2543; J2704; J3010; J3490; J7030; J7040; J7120; Q9967

== ENCOUNTER 2018-08-07 16:09 | Emergency (ER) | payer MEDICAID, OTHER ==
[2018-08-07] MEDS ORDERED: Sodium Chloride 0.9% 1,000 ML IV ONE (19:15)
[2018-08-07] MEDS ORDERED: Ondansetron 4 MG/2 ML SDV IVPUSH ONE (19:15)
[2018-08-07] MEDS ORDERED: Ketorolac 30 MG/ML SDV IVPUSH ONE (19:15)
[2018-08-07 19:54] LABS: CHLORIDE,CL 101 mmol/L (98-107); SODIUM,NA 139 mmol/L (136-148)
[2018-08-07] MEDS ORDERED: Magnesium Citrate Solution 296 ML Bottle PO ONE ×2 (21:28→21:33)
--- NOTE | 2018-08-07 21:37 | EDM.PDOC ---
ED HPI GENERAL MEDICAL PROBLEM - General Chief Complaint: Abdominal Pain Stated Complaint: STOMACH PAIN Time Seen by Provider: 08/07/18 18:41 Source of Information: Reports: Patient History Limitations: Reports: No Limitations - History of Present Illness INITIAL COMMENTS - FREE TEXT/NARRATIVE: HISTORY AND PHYSICAL: History of present illness: Patient is a 43-year-old male who presents to the ED today with police escort with concern of not having a bowel movement for 2 weeks and not being able to urinate causing 9 out of 10 abdominal pain. Patient states that since his hospital stay, his wound has been draining and healing appropriately. Patient states about he is still currently taking his antibiotics as instructed by Dr. Rosenberg. Patient initially was seen in the ED with concern of urinary retention at that time but was able to void at stay in ED. Patient states since his discharge he has not been able to urinate. Patient was seen in the ED on 08/04/18 and had an abdominal and pelvic CT done at this time showing constipation. At that time patient also had an abscess on his buttocks which he was admitted overnight with incision and drainage of abscess. Patient denies fever, chills, chest pain, shortness of breath, or cough. Denies headache, neck stiff ness, change in vision, syncope, or near syncope. Denies nausea, vomiting. Patient has been eating and drinking appropriately. Patient denies any health history. Review of systems: As per history of present illness and below otherwise all systems reviewed and negative. Past medical history: As per history of present illness and as reviewed below otherwise noncontributory. Surgical history: As per history of present illness and as reviewed below otherwise noncontributory. Social history: See social history for further information Family history: As per history of present illness and as reviewed below otherwise noncontributory. Physical exam: General: Patient is alert, oriented, and in no acute distress. Patient sitting comfortably on exam table. HEENT: Atraumatic, normocephalic, pupils equal and reactive bilaterally, negative for conjunctival pallor or scleral icterus, mucous membranes moist, TMs normal bilaterally, throat clear, neck supple, nontender, trachea midline. No drooling or trismus noted. No meningeal signs. No hot potato voice noted. Lungs: Clear to auscultation, breath sounds equal bilaterally, chest nontender. Heart: S1S2, regular rate and rhythm without overt murmur Abdomen: Mild generalized pain to palpation of the abdomen. Bowel sounds present throughout all quadrants. Otherwise, Soft distended. Negative for masses or hepatosplenomegaly. Negative for costovertebral tenderness. Pelvis: Stable nontender. Genitourinary: Deferred. Rectal: See skin. Deferred. Skin: There is an area of perilously drained abscess on the buttocks with a drain in place. The drainage as bloody and slightly purulent. Extremities: Atraumatic, negative for cords or calf pain. Neurovascular unremarkable. Neuro: Awake, alert, oriented. Cranial nerves II through XII unremarkable. Cerebellum unremarkable. Motor and sensory unremarkable throughout. Exam nonfocal. Notes: Bladder scan showed over 999 mL of fluid in the bladder. Pereyra catheter was placed and urine was fully drained. Patient had just received an abdominal and pelvic CT showing constipation. Patient does admit to having a hard time having a bowel movement due to the abscess that he had drained on his buttocks. Patient states he hasn't been able to sit comfortably on the toilet and has been holding in his bowel movements. Pereyra catheter left in for discharge. Patient is being discharged to [facility] and has a nurse available to him. Instructed officer and nurse to remove Pereyra after 2 days and after patient has had a full bowel movement. Discussed the importance for follow-up with the primary care provider, Dr. Rosenberg, and urology. Supportive care measures were reviewed and discussed. Voices understanding and is agreeable to plan of care. Denies any further questions or concerns at this time. Diagnostics: CBC, CMP, UA, lipase, bladder scan, urine culture Therapeutics: Normal saline, Toradol, magnesium citrate, Zofran, enema, Pereyra catheter Prescription: Magnesium citrate (patient sent home with bottle from ER) Impression: Urinary retention, unspecified Constipation Plan: 1. Take medications as prescribed. Continue to follow up with Dr. Rosenberg as scheduled. 2. Encourage small but frequent sips of fluid to prevent dehydration. Avoid caffeinated products. 3. Drink one half bottle of magnesium citrate you were given in the ED tonight. Drink the other half in the morning. 4. Please have the nurse from retirement remove the Pereyra catheter on Thursday. 5. Return to the ED as needed and as discussed. Definitive disposition and diagnosis as appropriate pending reevaluation and review of above. Bladder Pain Score (Numeric/FACES): 8 - Related Data Allergies Allergy/AdvReac Type Severity Reaction Status Date / Time No Known Allergies Allergy Verified 08/07/18 16:26 Home Meds: Home Meds Latanoprost 1 drop OP BEDTIME 01/18/18 [History] Blood Pressure Meds 08/04/18 [History] Past Medical History HEENT History: Reports: Glaucoma Cardiovascular History: Reports: Hypertension Respiratory History: Reports: None Gastrointestinal History: Reports: None Genitourinary History: Reports: None Musculoskeletal History: Reports: None Neurological History: Reports: None Psychiatric History: Reports: None Endocrine/Metabolic History: Reports: None Hematologic History: Reports: None Immunologic History: Reports: None Dermatologic History: Reports: None - Infectious Disease History Infectious Disease History: Reports: None - Past Surgical History Head Surgeries/Procedures: Reports: None Social & Family History - Family History Family Medical History: Noncontributory - Tobacco Use Smoking Status *Q: Never Smoker Second Hand Smoke Exposure: No - Caffeine Use Caffeine Use: Reports: None - Recreational Drug Use Recreational Drug Use: No ED ROS GENERAL - Review of Systems Review Of Systems: ROS reveals no pertinent complaints other than HPI. ED EXAM, GI/ABD - Physical Exam Exam: See Below (See dictation) Course - Vital Signs Last Recorded V/S: Last Vital Signs Temp 35.8 C 08/07/18 16:23 Pulse 79 08/07/18 16:30 Resp 20 08/07/18 16:30 BP 112/77 08/07/18 16:30 Pulse Ox 98 08/07/18 16:30 - Orders/Labs/Meds Orders: Active Orders 24 hr Category Date Time Status Bladder Scan [RC] ASDIRECTED Care 08/07/18 18:51 Active Enema [RC] ASDIRECTED Care 08/07/18 20:12 Active Insert Pereyra Catheter [Insert Urinary Catheter] [OM.PC] Care 08/07/18 19:00 Ordered Q24H Urinary Catheter Assessment [RC] ASDIRECTED Care 08/07/18 18:51 Active CULTURE URINE [RM] Stat Lab 08/07/18 18:45 Received Labs: Laboratory Tests 08/07/18 08/07/18 08/07/18 Range/Units 18:30 18:30 18:45 WBC 8.36 (4.0-11.0) K/uL RBC 4.63 (4.50-5.90) M/uL Hgb 14.1 (13.0-17.0) g/dL Hct 40.8 (38.0-50.0) % MCV 88.1 (80.0-98.0) fL MCH 30.5 (27.0-32.0) pg MCHC 34.6 (31.0-37.0) g/dL RDW Std Deviation 41.8 (28.0-62.0) fl RDW Coeff of Yung 13 (11.0-15.0) % Plt Count 339 (150-400) K/uL MPV 11.30 (7.40-12.00) fL Neut % (Auto) 67.5 (48.0-80.0) % Lymph % (Auto) 24.6 (16.0-40.0) % [place] % (Auto) 6.9 (0.0-15.0) % Eos % (Auto) 0.8 (0.0-7.0) % Baso % (Auto) 0.2 (0.0-1.5) % Neut # (Auto) 5.6 (1.4-5.7) K/uL Lymph # (Auto) 2.1 (0.6-2.4) K/uL [place] # (Auto) 0.6 (0.0-0.8) K/uL Eos # (Auto) 0.1 (0.0-0.7) K/uL Baso # (Auto) 0.0 (0.0-0.1) K/uL Nucleated RBC % 0.0 /100WBC Nucleated RBCs # 0 K/uL Sodium 139 (136-148) mmol/L Potassium 3.6 (3.5-5.1) mmol/L Chloride 101 (98-107) mmol/L Carbon Dioxide 26.9 (21.0-32.0) mmol/L BUN 16 (7.0-18.0) mg/dL Creatinine 1.2 (0.8-1.3) mg/dL Est Cr Clr Drug Dosing 81.96 mL/min Estimated GFR (MDRD) > 60.0 ml/min Glucose 94 (74-106) mg/dL Calcium 9.6 (8.5-10.1) mg/dL Total Bilirubin 0.4 (0.2-1.0) mg/dL AST 25 (15-37) IU/L ALT 25 (14-63) IU/L Alkaline Phosphatase 71 (46-116) U/L Total Protein 9.1 H (6.4-8.2) g/dL Albumin 3.3 L (3.4-5.0) g/dL Globulin 5.8 H (2.6-4.0) g/dL Albumin/Globulin Ratio 0.6 L (0.9-1.6) Lipase 72 L (73-393) U/L Urine Color YELLOW Urine Appearance CLEAR Urine pH 7.0 (5.0-8.0) Ur Specific [place] 1.020 (1.001-1.035) Urine Protein NEGATIVE (NEGATIVE) mg/dL Urine Glucose (UA) NEGATIVE (NEGATIVE) mg/dL Urine Ketones 40 H (NEGATIVE) mg/dL Urine Occult Blood NEGATIVE (NEGATIVE) Urine Nitrite NEGATIVE (NEGATIVE) Urine Bilirubin NEGATIVE (NEGATIVE) Urine Urobilinogen 0.2 (<2.0) EU/dL Ur Leukocyte Esterase NEGATIVE (NEGATIVE) Meds: Medications Discontinued Medications Generic Name Dose Route Start Last Admin Trade Name Freq PRN Reason Stop Dose Admin Sodium Chloride 1,000 mls @ 999 mls/hr 08/07/18 19:15 08/07/18 19:47 Normal Saline IV 08/07/18 20:15 999 mls/hr BOLUS ONE Administration Ketorolac Tromethamine 30 mg 08/07/18 19:15 08/07/18 19:47 Toradol IVPUSH 08/07/18 19:16 30 mg ONETIME ONE Administration Magnesium Citrate 1 ml 08/07/18 21:28 08/07/18 21:41 Citrate Of Magnesia PO 08/07/18 21:29 146 ml ONETIME ONE Administration Magnesium Citrate 150 ml 08/07/18 21:33 08/07/18 21:42 Citrate Of Magnesia PO 08/07/18 21:34 150 ml ONETIME ONE Administration Ondansetron HCl 4 mg 08/07/18 19:15 08/07/18 19:47 Zofran IVPUSH 08/07/18 19:16 4 mg ONETIME ONE Administration Departure - Departure Time of Disposition: 21:49 Disposition: Home, Self-Care 01 Clinical Impression: Urinary retention Constipation Qualifiers: Constipation type: unspecified constipation type Qualified Code(s): K59.00 - Constipation, unspecified - Discharge Information Instructions: Constipation, Adult, [id number] Referrals: PCP,Unknown [Primary Care Provider] - Forms: ED Department Discharge Additional Instructions: The following information is given to patients seen in the emergency department who are being discharged to home. This information is to outline your options for follow-up care. We provide all patients seen in our emergency department with a follow-up referral. The need for follow-up, as well as the timing and circumstances, are variable depending upon the specifics of your emergency department visit. If you don't have a primary care physician on staff, we will provide you with a referral. We always advise you to contact your personal physician following an emergency department visit to inform them of the circumstance of the visit and for follow-up with them and/or the need for any referrals to a consulting specialist. The emergency department will also refer you to a specialist when appropriate. This referral assures that you have the opportunity for followup care with a specialist. All of these measure are taken in an effort to provide you with optimal care, which includes your followup. Under all circumstances we always encourage you to contact your private physician who remains a resource for coordinating your care. When calling for followup care, please make the office aware that this follow-up is from your recent emergency room visit. If for any reason you are refused follow-up, please contact the [facility] emergency department at and ask to speak to the emergency department charge nurse. [facility] Professional Building [address] [place] [phone] Please do all instructions given to you after your surgery with Dr. Rosenberg and follow-up with him as scheduled. Try to push more fluids and avoid caffeinated products. Please drink the second half of the bottle of magnesium citrate you were given here in the morning. Please have the nurse at the retirement remove your Pereyra catheter on Thursday and return to ER as needed and as discussed. - My Orders Last 24 Hours: My Active Orders 08/07/18 18:45 CULTURE URINE [RM] Stat 08/07/18 18:51 Bladder Scan [RC] ASDIRECTED Urinary Catheter Assessment [RC] ASDIRECTED 08/07/18 19:00 Insert Pereyra Catheter [Insert Urinary Catheter] [OM.PC] Q24H 08/07/18 20:12 Enema [RC] ASDIRECTED - Assessment/Plan Last 24 Hours: My Active Orders 08/07/18 18:45 CULTURE URINE [RM] Stat 08/07/18 18:51 Bladder Scan [RC] ASDIRECTED Urinary Catheter Assessment [RC] ASDIRECTED 08/07/18 19:00 Insert Pereyra Catheter [Insert Urinary Catheter] [OM.PC] Q24H 08/07/18 20:12 Enema [RC] ASDIRECTED
== END 2018-08-07 22:00 | disposition home or self-care (01) ==
LOC: MW.ED 16:09
DX: R33.8 Other retention of urine (principal); K59.00 Constipation, unspecified; I10 Essential (primary) hypertension; Z79.899 Other long term (current) drug therapy
CPT/HCPCS: 51702; 51798; 80053; 81003; 83690; 85025; 87086; 96361; 96374; 96375; 99283; A9270; J1885; J2405; J7040

== ENCOUNTER 2018-08-09 23:47 | Emergency (ER) | payer MEDICAID, OTHER | END 2018-08-10 00:18 | LOC: MW.ED 23:47 | DX: Z53.21 Procedure and treatment not carried out due to patient leaving prior to being seen by health care provider (principal) | CPT/HCPCS: 99281 ==